=== PATIENT | female | born 1970 | race Caucasian/White ===

== ENCOUNTER 2018-01-20 06:24 | Emergency (ER) | payer BC ==
[~2018-01-20] VITALS: Ht 182.9 cm; Wt 75.7 kg
[2018-01-20 06:29] VITALS: BP 148/94
[2018-01-20] MEDS ORDERED: SODIUM CHLORIDE FLUSH 10ML SYR IVF ONE (07:00)
[2018-01-20] MEDS ORDERED: METOCLOPRAMIDE 5 MG/ML, 2ML IVPush ONE (07:00)
[2018-01-20] MEDS ORDERED: SODIUM CHLORIDE 0.9% 1,000ML IVBOLUS ONE (07:00)
[2018-01-20] MEDS ORDERED: KETOROLAC 30 MG/1 ML IVPush ONE (07:00)
[2018-01-20] MEDS ORDERED: KETOROLAC 30 MG/1 ML ONE (07:02)
[2018-01-20] MEDS ORDERED: METOCLOPRAMIDE 5 MG/ML, 2ML ONE (07:02)
[2018-01-20] MEDS ORDERED: PROMETHAZINE 25 MG/ML, 1ML ONE (08:10)
[2018-01-20] MEDS ORDERED: PROMETHAZINE 25 MG/ML, 1ML IM ONE (08:30)
== END 2018-01-20 09:39 ==
LOC: ED 08:36
DX: R11.2 Nausea with vomiting, unspecified (principal); G43.019 Migraine without aura, intractable, without status migrainosus
CPT/HCPCS: 96361; 96372; 96374; 96375; 99284; J1885; J2550; J2765; J7030